=== PATIENT | female | born 1940 | race Caucasian/White ===

== ENCOUNTER 2017-11-16 09:33 | Inpatient (IN) | payer MEDICARE, OTHER ==
[2017-11-16] MEDS: ONDANSETRON 4MG/2ML VIAL (J2405) IV ×3 (11:17→23:42)
[2017-11-16] MEDS: MORPHINE 2 MG/ML 1ML SYRINGE (J2270) IV ×2 (11:17→14:21)
[2017-11-16 12:27] LABS: HEMATOCRIT 40.3 % (36.0-47.0); HEMOGLOBIN 13.6 g/dl (12.0-15.5); MEAN CORPUSCULAR HEMOGLOBIN 32.5 pg (27.0-33.0); MEAN CORPUSCULAR HGB CONC 33.7 g/dl (32.0-36.5); MEAN CORPUSCULAR VOLUME 96.2 fl (80.0-96.0); PLATELET COUNT, AUTOMATED 192 10^3/uL (150-450); RED BLOOD COUNT 4.19 10^6/uL (4.00-5.40); RED CELL DISTRIBUTION WIDTH 14.1 % (11.5-14.5); WHITE BLOOD COUNT 18.4 10^3/uL (4.0-10.0)
[2017-11-16 12:34] LABS: INR 0.93; PARTIAL THROMBOPLASTIN TIME 27.2 SECONDS (25.4-37.6); PROTHROMBIN TIME 12.6 SECONDS (12.1-14.4)
[2017-11-16] MEDS: NS 1,000 ML IV ×2 (12:52→16:06)
[2017-11-16 13:19] LABS: ANION GAP 5 MEQ/L (8-16); BLOOD UREA NITROGEN 12 MG/DL (7-18); CALCIUM LEVEL 8.4 MG/DL (8.8-10.2); CARBON DIOXIDE LEVEL 29 MEQ/L (21-32); CHLORIDE LEVEL 108 MEQ/L (98-107); CREATININE FOR GFR 0.71 MG/DL (0.55-1.30); GLOMERULAR FILTRATION RATE > 60.0 (>39); GLUCOSE, FASTING 110 MG/DL (70-100); POTASSIUM SERUM 3.9 MEQ/L (3.5-5.1); SODIUM LEVEL 142 MEQ/L (136-145)
[2017-11-16 13:20] LABS: CK-MB VALUE MASS 3.7 NG/ML (<3.6); CPK CREATINE PHOSPHOKINASE 225 U/L (26-192)
[2017-11-16 13:21] LABS: MB/CK RELATIVE INDEX 0.02 (< OR =4); TROPONIN I 0.15 NG/ML (< 0.10)
[2017-11-16 14:34] LABS: CPK CREATINE PHOSPHOKINASE 214 U/L (26-192); MB/CK RELATIVE INDEX 1.36 (< OR =4); TROPONIN I < 0.02 NG/ML (< 0.10)
[2017-11-16] MEDS ORDERED: ALBUTEROL SULFATE 2.5 MG/0.5 ML INH NEB SOLN INH (15:30)
[2017-11-16] MEDS: PANTOPRAZOLE 40MG TAB (PROTONIX) PO (15:37)
[2017-11-16] MEDS ORDERED: IPRATROPIUM 0.5MG/ALBUTEROL 2.5MG INH SOL UD 3ML (DUONEB)(J7620) NEB (19:00)
[2017-11-16] MEDS: IPRATROPIUM 0.5MG/ALBUTEROL 2.5MG INH SOL UD 3ML (DUONEB)(J7620) NEB (19:53)
[2017-11-16] MEDS: HEPARIN SOD (PORCINE) 5000 UNITS/ML VIAL SQ (20:57)
[2017-11-16] MEDS: ADVAIR HFA 115/21MCG INHALER INH (21:00)
[2017-11-16 21:26] LABS: KETONE, URINE AUTO RFX TRACE mg/dL (NEGATIVE); LEUKOCYTE ESTERASE UR AUTO RFX TRACE (NEGATIVE); MUCUS, URINE RFX LARGE (NEGATIVE); NITRITE, URINE AUTO RFX NEGATIVE (NEGATIVE); RBC, URINE AUTO RFX 17 /HPF (0-3); SQUAM EPITHELIAL CELL UR AURFX 3 /HPF (0-6); WBC, URINE AUTO RFX 10 /HPF (0-3)
[2017-11-16 22:39] LABS: CPK CREATINE PHOSPHOKINASE 212 U/L (26-192); MB/CK RELATIVE INDEX 0.99 (< OR =4); TROPONIN I < 0.02 NG/ML (< 0.10)
[2017-11-16] MEDS: MORPHINE 4 MG/ML 1ML VIAL/SYRINGE (J2270) IV (23:38)
[2017-11-17] MEDS: IPRATROPIUM 0.5MG/ALBUTEROL 2.5MG INH SOL UD 3ML (DUONEB)(J7620) NEB ×4 (01:17→19:49)
[2017-11-17] MEDS: NS 1,000 ML IV ×2 (04:32→17:21)
[2017-11-17] MEDS: METOCLOPRAMIDE INJ 10MG/2ML VIAL (J2765) IV (04:32)
[2017-11-17 08:05] LABS: HEMATOCRIT 35.9 % (36.0-47.0); HEMOGLOBIN 11.8 g/dl (12.0-15.5); MEAN CORPUSCULAR HEMOGLOBIN 32.4 pg (27.0-33.0); MEAN CORPUSCULAR HGB CONC 32.9 g/dl (32.0-36.5); MEAN CORPUSCULAR VOLUME 98.6 fl (80.0-96.0); PLATELET COUNT, AUTOMATED 158 10^3/uL (150-450); RED BLOOD COUNT 3.64 10^6/uL (4.00-5.40); RED CELL DISTRIBUTION WIDTH 14.1 % (11.5-14.5); WHITE BLOOD COUNT 14.2 10^3/uL (4.0-10.0)
[2017-11-17 08:40] LABS: ALBUMIN 2.9 GM/DL (3.2-5.2); ALBUMIN/GLOBULIN RATIO 0.81 (1.00-1.93); ALKALINE PHOSPHATASE 66 U/L (45-117); ALT/SGPT 32 U/L (12-78); ANION GAP 3 MEQ/L (8-16); AST/SGOT 26 U/L (7-37); BILIRUBIN,TOTAL 0.7 MG/DL (0.2-1.0); BLOOD UREA NITROGEN 13 MG/DL (7-18); CALCIUM LEVEL 8.1 MG/DL (8.8-10.2); CARBON DIOXIDE LEVEL 28 MEQ/L (21-32); CHLORIDE LEVEL 110 MEQ/L (98-107); CREATININE FOR GFR 0.72 MG/DL (0.55-1.30); GLOMERULAR FILTRATION RATE > 60.0 (>39); GLUCOSE, FASTING 109 MG/DL (70-100); MAGNESIUM LEVEL 2.6 MG/DL (1.8-2.4); POTASSIUM SERUM 4.2 MEQ/L (3.5-5.1); SODIUM LEVEL 141 MEQ/L (136-145); TOTAL PROTEIN 6.5 GM/DL (6.4-8.2)
[2017-11-17] MEDS: ADVAIR HFA 115/21MCG INHALER INH ×2 (08:55→19:49)
[2017-11-17] MEDS: ASPIRIN 81 MG ENTERIC TAB PO (09:00)
[2017-11-17] MEDS: PANTOPRAZOLE 40MG TAB (PROTONIX) PO (09:37)
[2017-11-17] MEDS: ONDANSETRON 4MG/2ML VIAL (J2405) IV (10:45)
[2017-11-17] MEDS: MORPHINE 4 MG/ML 1ML VIAL/SYRINGE (J2270) IV (10:46)
[2017-11-17] MEDS ORDERED: ceFAZolin 1GM INJ (J0690 PER 500MG) As Ordered (14:09)
[2017-11-17] MEDS: HEPARIN SOD (PORCINE) 5000 UNITS/ML VIAL SQ (17:21)
[2017-11-18] MEDS: IPRATROPIUM 0.5MG/ALBUTEROL 2.5MG INH SOL UD 3ML (DUONEB)(J7620) NEB ×4 (01:53→20:00)
[2017-11-18] MEDS: MORPHINE 4 MG/ML 1ML VIAL/SYRINGE (J2270) IV (05:14)
[2017-11-18] MEDS: ONDANSETRON 4MG/2ML VIAL (J2405) IV (05:15)
[2017-11-18 07:12] LABS: HEMATOCRIT 33.9 % (36.0-47.0); HEMOGLOBIN 11.1 g/dl (12.0-15.5); MEAN CORPUSCULAR HEMOGLOBIN 31.7 pg (27.0-33.0); MEAN CORPUSCULAR HGB CONC 32.7 g/dl (32.0-36.5); MEAN CORPUSCULAR VOLUME 96.9 fl (80.0-96.0); PLATELET COUNT, AUTOMATED 154 10^3/uL (150-450); WHITE BLOOD COUNT 11.8 10^3/uL (4.0-10.0)
[2017-11-18] MEDS: NS 1,000 ML IV (07:30)
[2017-11-18 07:35] LABS: ALBUMIN 2.5 GM/DL (3.2-5.2); ALBUMIN/GLOBULIN RATIO 0.76 (1.00-1.93); ALKALINE PHOSPHATASE 63 U/L (45-117); ALT/SGPT 27 U/L (12-78); ANION GAP 5 MEQ/L (8-16); AST/SGOT 19 U/L (7-37); BILIRUBIN,TOTAL 0.8 MG/DL (0.2-1.0); BLOOD UREA NITROGEN 11 MG/DL (7-18); CALCIUM LEVEL 7.6 MG/DL (8.8-10.2); CARBON DIOXIDE LEVEL 29 MEQ/L (21-32); CHLORIDE LEVEL 108 MEQ/L (98-107); CREATININE FOR GFR 0.54 MG/DL (0.55-1.30); GLOMERULAR FILTRATION RATE > 60.0 (>39); GLUCOSE, FASTING 116 MG/DL (70-100); MAGNESIUM LEVEL 2.3 MG/DL (1.8-2.4); SODIUM LEVEL 142 MEQ/L (136-145); TOTAL PROTEIN 5.8 GM/DL (6.4-8.2)
[2017-11-18] MEDS: ADVAIR HFA 115/21MCG INHALER INH ×2 (08:03→21:09)
[2017-11-18] MEDS ORDERED: ONDANSETRON 4MG/2ML VIAL (J2405) As Ordered (08:55)
[2017-11-18] MEDS ORDERED: PROPOFOL 200 MG/20 ML VIAL As Ordered (08:55)
[2017-11-18] MEDS ORDERED: MIDAZOLAM INJ 2 MG/2 ML VIAL (J2250) As Ordered (08:55)
[2017-11-18] MEDS ORDERED: BUPIVACAINE/DEXTROSE 0.75% 2 ML AMP As Ordered (08:55)
[2017-11-18] MEDS ORDERED: dexameTHASONE 4 MG/ML 1ML VIAL (J1100) As Ordered (08:55)
[2017-11-18] MEDS ORDERED: KETAMINE HCL 200 MG/20 ML VIAL As Ordered (08:55)
[2017-11-18] MEDS: ceFAZolin 1GM INJ (J0690 PER 500MG) As Ordered (09:08)
[2017-11-18] MEDS: EPINEPHrine INJ 1 MG/ML 1ML AMP As Ordered (09:08)
[2017-11-18] MEDS ORDERED: ePHEDrine SULFATE 25 MG/5 ML(5MG/ML) SYRINGE As Ordered (09:15)
[2017-11-18] MEDS ORDERED: PHENYLephrine HCL 500 MCG/5 ML (100MCG/ML) SYRINGE (J2370) As Ordered ×2 (09:15→09:34)
[2017-11-18] MEDS ORDERED: fentaNYL 100 MCG/2 ML INJECTION (J3010) IV (11:45)
[2017-11-18] MEDS ORDERED: ONDANSETRON 4MG/2ML VIAL (J2405) IV (11:45)
[2017-11-18] MEDS: LR 1,000 ML IV (11:45)
[2017-11-18] MEDS ORDERED: MORPHINE 10 MG/ML 1ML VIAL (J2270) IV (11:45)
[2017-11-18] MEDS ORDERED: traMADol 50 MG TAB PO ×2 (12:00)
[2017-11-18] MEDS: PANTOPRAZOLE 40MG TAB (PROTONIX) PO (15:10)
[2017-11-18] MEDS: ASPIRIN 81 MG ENTERIC TAB PO (15:10)
[2017-11-18] MEDS: INFLUENZA VIRUS VACCINE HIGH DOSE 0.5 ML SYRINGE (90662) IM (17:24)
[2017-11-18] MEDS: ACETAMINOPHEN TAB 650MG DOSE (2X325MG) PO (21:30)
[2017-11-19] MEDS: IPRATROPIUM 0.5MG/ALBUTEROL 2.5MG INH SOL UD 3ML (DUONEB)(J7620) NEB ×4 (02:00→20:14)
[2017-11-19] MEDS: ACETAMINOPHEN TAB 650MG DOSE (2X325MG) PO ×2 (05:56→17:33)
[2017-11-19 06:53] LABS: HEMATOCRIT 29.8 % (36.0-47.0); HEMOGLOBIN 9.9 g/dl (12.0-15.5); MEAN CORPUSCULAR HEMOGLOBIN 32.5 pg (27.0-33.0); MEAN CORPUSCULAR HGB CONC 33.2 g/dl (32.0-36.5); MEAN CORPUSCULAR VOLUME 97.7 fl (80.0-96.0); PLATELET COUNT, AUTOMATED 150 10^3/uL (150-450); RED BLOOD COUNT 3.05 10^6/uL (4.00-5.40); RED CELL DISTRIBUTION WIDTH 13.8 % (11.5-14.5); WHITE BLOOD COUNT 13.9 10^3/uL (4.0-10.0)
[2017-11-19 07:04] LABS: ALBUMIN 2.3 GM/DL (3.2-5.2); ALBUMIN/GLOBULIN RATIO 0.66 (1.00-1.93); ALKALINE PHOSPHATASE 54 U/L (45-117); ALT/SGPT 24 U/L (12-78); ANION GAP 6 MEQ/L (8-16); AST/SGOT 23 U/L (7-37); BILIRUBIN,TOTAL 0.8 MG/DL (0.2-1.0); BLOOD UREA NITROGEN 12 MG/DL (7-18); CALCIUM LEVEL 7.9 MG/DL (8.8-10.2); CARBON DIOXIDE LEVEL 28 MEQ/L (21-32); CHLORIDE LEVEL 106 MEQ/L (98-107); CREATININE FOR GFR 0.44 MG/DL (0.55-1.30); GLOMERULAR FILTRATION RATE > 60.0 (>39); GLUCOSE, FASTING 112 MG/DL (70-100); MAGNESIUM LEVEL 2.3 MG/DL (1.8-2.4); POTASSIUM SERUM 3.8 MEQ/L (3.5-5.1); SODIUM LEVEL 140 MEQ/L (136-145); TOTAL PROTEIN 5.8 GM/DL (6.4-8.2)
[2017-11-19] MEDS: ADVAIR HFA 115/21MCG INHALER INH ×2 (07:46→20:15)
[2017-11-19] MEDS: MOM 30ML SUSPENSION UDC PO (09:00)
[2017-11-19] MEDS: MIRALAX *UNIT DOSE* 17GM PACKET PO (09:00)
[2017-11-19] MEDS: PANTOPRAZOLE 40MG TAB (PROTONIX) PO (10:05)
[2017-11-19] MEDS: ASPIRIN 81 MG ENTERIC TAB PO (10:05)
[2017-11-19] MEDS: SENOKOT S TAB PO ×2 (10:05→20:45)
[2017-11-19] MEDS: ceFAZolin SOD 1 GM in D5W MINI-BAG PLUS 50 ML IV ×2 (10:05→17:34)
[2017-11-19] MEDS ORDERED: ALBUTEROL SULFATE 2.5 MG/0.5 ML INH NEB SOLN NEB (16:00)
[2017-11-19] MEDS: RIVAROXABAN 10 MG TAB (XARELTO) PO (17:32)
[2017-11-19] MEDS: cefTRIAXone SOD 1 GM in D5W MINI-BAG PLUS 50 ML IV (20:45)
[2017-11-19] MEDS: DONEPEZIL 5 MG TAB PO (20:45)
[2017-11-19] MEDS: QUEtiapine FUMARATE 25 MG TAB PO (20:45)
[2017-11-20] MEDS: IPRATROPIUM 0.5MG/ALBUTEROL 2.5MG INH SOL UD 3ML (DUONEB)(J7620) NEB ×3 (01:38→13:56)
[2017-11-20] MEDS: ACETAMINOPHEN TAB 650MG DOSE (2X325MG) PO ×2 (04:38→13:01)
[2017-11-20] MEDS: ADVAIR HFA 115/21MCG INHALER INH (07:26)
[2017-11-20] MEDS: SENOKOT S TAB PO (07:54)
[2017-11-20] MEDS: cefTRIAXone SOD 1 GM in D5W MINI-BAG PLUS 50 ML IV (07:54)
[2017-11-20] MEDS: MIRALAX *UNIT DOSE* 17GM PACKET PO (07:54)
[2017-11-20] MEDS: PANTOPRAZOLE 40MG TAB (PROTONIX) PO (07:55)
[2017-11-20] MEDS: MOM 30ML SUSPENSION UDC PO (07:55)
[2017-11-20] MEDS: ASPIRIN 81 MG ENTERIC TAB PO (07:56)
[2017-11-20 08:17] LABS: HEMATOCRIT 28.7 % (36.0-47.0); HEMOGLOBIN 9.8 g/dl (12.0-15.5); MEAN CORPUSCULAR HEMOGLOBIN 33.3 pg (27.0-33.0); MEAN CORPUSCULAR HGB CONC 34.1 g/dl (32.0-36.5); MEAN CORPUSCULAR VOLUME 97.6 fl (80.0-96.0); PLATELET COUNT, AUTOMATED 174 10^3/uL (150-450); RED BLOOD COUNT 2.94 10^6/uL (4.00-5.40); RED CELL DISTRIBUTION WIDTH 14.1 % (11.5-14.5); WHITE BLOOD COUNT 11.1 10^3/uL (4.0-10.0)
[2017-11-20 08:47] LABS: ALBUMIN 2.3 GM/DL (3.2-5.2); ALBUMIN/GLOBULIN RATIO 0.62 (1.00-1.93); ALKALINE PHOSPHATASE 55 U/L (45-117); ALT/SGPT 23 U/L (12-78); ANION GAP 8 MEQ/L (8-16); AST/SGOT 18 U/L (7-37); BILIRUBIN,TOTAL 0.6 MG/DL (0.2-1.0); BLOOD UREA NITROGEN 11 MG/DL (7-18); CARBON DIOXIDE LEVEL 29 MEQ/L (21-32); CHLORIDE LEVEL 108 MEQ/L (98-107); CREATININE FOR GFR 0.58 MG/DL (0.55-1.30); GLOMERULAR FILTRATION RATE > 60.0 (>39); GLUCOSE, FASTING 100 MG/DL (70-100); MAGNESIUM LEVEL 2.6 MG/DL (1.8-2.4); POTASSIUM SERUM 3.6 MEQ/L (3.5-5.1); SODIUM LEVEL 145 MEQ/L (136-145)
== END 2017-11-20 17:15 | DRG 470 ==
LOC: M MS5PR 11-18 12:30 → M ED 09:33 → M ED INP 18:55
PROC: 0SRR019 Replacement of Right Hip Joint, Femoral Surface with Metal Synthetic Substitute, Cemented, Open Approach (ICD-10-PCS; principal; 2017-11-18 08:18)
DX: S72.001A Fracture of unspecified part of neck of right femur, initial encounter for closed fracture (principal); N39.0 Urinary tract infection, site not specified; J44.9 Chronic obstructive pulmonary disease, unspecified; F03.90 Unspecified dementia, unspecified severity, without behavioral disturbance, psychotic disturbance, mood disturbance, and anxiety; B95.1 Streptococcus, group B, as the cause of diseases classified elsewhere; F41.9 Anxiety disorder, unspecified; K21.9 Gastro-esophageal reflux disease without esophagitis; R79.89 Other specified abnormal findings of blood chemistry; W01.0XXA Fall on same level from slipping, tripping and stumbling without subsequent striking against object, initial encounter; Y92.009 Unspecified place in unspecified non-institutional (private) residence as the place of occurrence of the external cause; Y93.01 Activity, walking, marching and hiking; Z90.49 Acquired absence of other specified parts of digestive tract; Z87.891 Personal history of nicotine dependence; Z79.899 Other long term (current) drug therapy

== ENCOUNTER 2017-11-20 17:17 | Inpatient (IN) | payer MEDICARE ==
[2017-11-20] MEDS: ALBUTEROL SULFATE 2.5 MG/0.5 ML INH NEB SOLN NEB (20:40)
[2017-11-20] MEDS: ADVAIR HFA 115/21MCG INHALER INH (21:00)
[2017-11-20] MEDS: DONEPEZIL 5 MG TAB PO (21:46)
[2017-11-20] MEDS: QUEtiapine FUMARATE 25 MG TAB PO (21:46)
[2017-11-20] MEDS: CEFDINIR 300 MG CAP (OMNICEF) PO (21:46)
[2017-11-20] MEDS: RIVAROXABAN 10 MG TAB (XARELTO) PO (21:46)
[2017-11-20] MEDS: traMADol 50 MG TAB PO (21:47)
[2017-11-21] MEDS: ALBUTEROL SULFATE 2.5 MG/0.5 ML INH NEB SOLN NEB ×4 (02:00→21:38)
[2017-11-21] MEDS: ADVAIR HFA 115/21MCG INHALER INH ×3 (02:55→21:38)
[2017-11-21] MEDS: traMADol 50 MG TAB PO ×2 (03:47→20:26)
[2017-11-21 07:05] LABS: BASO % 0.3 % (0.0-1.0); EOS # 0.6 10^3/uL (0.0-0.50); EOS % 5.9 % (0.0-3.0); HEMATOCRIT 25.7 % (36.0-47.0); HEMOGLOBIN 8.6 g/dl (12.0-15.5); IMMATURE GRANULOCYTE % 0.6 % (0-3.0); LYMPH # 1.7 10^3/uL (1.5-4.5); LYMPH % 16.6 % (24.0-44.0); MEAN CORPUSCULAR HGB CONC 33.5 g/dl (32.0-36.5); MEAN CORPUSCULAR VOLUME 95.5 fl (80.0-96.0); MONO # 1.8 10^3/uL (0.0-0.8); MONO % 17.5 % (0.0-5.0); NEUTROPHILS % 59.1 % (36.0-66.0); PLATELET COUNT, AUTOMATED 190 10^3/uL (150-450); RED BLOOD COUNT 2.69 10^6/uL (4.00-5.40); RED CELL DISTRIBUTION WIDTH 13.7 % (11.5-14.5); WHITE BLOOD COUNT 10.1 10^3/uL (4.0-10.0)
[2017-11-21 07:16] LABS: ALBUMIN/GLOBULIN RATIO 0.59 (1.00-1.93); ALKALINE PHOSPHATASE 51 U/L (45-117); ALT/SGPT 18 U/L (12-78); ANION GAP 7 MEQ/L (8-16); AST/SGOT 17 U/L (7-37); BILIRUBIN,TOTAL 0.4 MG/DL (0.2-1.0); BLOOD UREA NITROGEN 13 MG/DL (7-18); CALCIUM LEVEL 7.6 MG/DL (8.8-10.2); CARBON DIOXIDE LEVEL 28 MEQ/L (21-32); CHLORIDE LEVEL 106 MEQ/L (98-107); CREATININE FOR GFR 0.44 MG/DL (0.55-1.30); GLOMERULAR FILTRATION RATE > 60.0 (>39); GLUCOSE, FASTING 96 MG/DL (70-100); POTASSIUM SERUM 3.9 MEQ/L (3.5-5.1); SODIUM LEVEL 141 MEQ/L (136-145); TOTAL PROTEIN 5.4 GM/DL (6.4-8.2)
[2017-11-21] MEDS: PANTOPRAZOLE 40MG TAB (PROTONIX) PO (08:13)
[2017-11-21] MEDS: SENOKOT S TAB PO (08:13)
[2017-11-21] MEDS: CEFDINIR 300 MG CAP (OMNICEF) PO ×2 (08:13→20:26)
[2017-11-21] MEDS: ASPIRIN 81 MG CHEW TABLET PO (08:13)
[2017-11-21] MEDS: ACETAMINOPHEN TAB 650MG DOSE (2X325MG) PO (17:47)
[2017-11-21] MEDS: RIVAROXABAN 10 MG TAB (XARELTO) PO (17:47)
[2017-11-21] MEDS: DONEPEZIL 5 MG TAB PO (20:26)
[2017-11-21] MEDS: QUEtiapine FUMARATE 25 MG TAB PO (20:26)
[2017-11-21] MEDS: FERROUS SULFATE 325MG TAB PO (20:26)
[2017-11-22] MEDS: ALBUTEROL SULFATE 2.5 MG/0.5 ML INH NEB SOLN NEB ×4 (00:50→20:44)
[2017-11-22] MEDS: traMADol 50 MG TAB PO ×2 (06:08→21:07)
[2017-11-22 07:51] LABS: HEMATOCRIT 28.3 % (36.0-47.0); HEMOGLOBIN 9.3 g/dl (12.0-15.5); MEAN CORPUSCULAR HEMOGLOBIN 32.1 pg (27.0-33.0); MEAN CORPUSCULAR HGB CONC 32.9 g/dl (32.0-36.5); MEAN CORPUSCULAR VOLUME 97.6 fl (80.0-96.0); PLATELET COUNT, AUTOMATED 236 10^3/uL (150-450); RED CELL DISTRIBUTION WIDTH 13.7 % (11.5-14.5); WHITE BLOOD COUNT 9.2 10^3/uL (4.0-10.0)
[2017-11-22] MEDS: FERROUS SULFATE 325MG TAB PO ×2 (07:59→21:02)
[2017-11-22] MEDS: SENOKOT S TAB PO (07:59)
[2017-11-22] MEDS: ASPIRIN 81 MG CHEW TABLET PO (07:59)
[2017-11-22] MEDS: CEFDINIR 300 MG CAP (OMNICEF) PO ×2 (07:59→21:01)
[2017-11-22] MEDS: PANTOPRAZOLE 40MG TAB (PROTONIX) PO (08:00)
[2017-11-22] MEDS: ADVAIR HFA 115/21MCG INHALER INH ×2 (08:17→20:45)
[2017-11-22] MEDS ORDERED: DONEPEZIL 5 MG TAB PO (09:00)
[2017-11-22] MEDS ORDERED: BISACODYL 10 MG SUPP PR (11:45)
[2017-11-22] MEDS: RIVAROXABAN 10 MG TAB (XARELTO) PO (17:27)
[2017-11-22] MEDS: QUEtiapine FUMARATE 25 MG TAB PO (21:02)
[2017-11-22] MEDS: DONEPEZIL 5 MG TAB PO (21:02)
[2017-11-23] MEDS: ALBUTEROL SULFATE 2.5 MG/0.5 ML INH NEB SOLN NEB ×4 (02:47→19:49)
[2017-11-23] MEDS: traMADol 50 MG TAB PO ×2 (06:04→16:02)
[2017-11-23] MEDS: ADVAIR HFA 115/21MCG INHALER INH ×2 (08:20→19:49)
[2017-11-23] MEDS: SENOKOT S TAB PO (08:32)
[2017-11-23] MEDS: CEFDINIR 300 MG CAP (OMNICEF) PO ×2 (08:32→20:45)
[2017-11-23] MEDS: ASPIRIN 81 MG CHEW TABLET PO (08:32)
[2017-11-23] MEDS: FERROUS SULFATE 325MG TAB PO ×2 (08:32→20:45)
[2017-11-23] MEDS: PANTOPRAZOLE 40MG TAB (PROTONIX) PO (08:32)
[2017-11-23] MEDS: RIVAROXABAN 10 MG TAB (XARELTO) PO (17:03)
[2017-11-23] MEDS: DONEPEZIL 5 MG TAB PO (20:45)
[2017-11-23] MEDS: QUEtiapine FUMARATE 25 MG TAB PO (20:45)
[2017-11-24] MEDS: ALBUTEROL SULFATE 2.5 MG/0.5 ML INH NEB SOLN NEB ×4 (01:20→20:00)
[2017-11-24] MEDS: traMADol 50 MG TAB PO ×2 (02:30→21:14)
[2017-11-24] MEDS: ADVAIR HFA 115/21MCG INHALER INH ×2 (09:03→20:34)
[2017-11-24] MEDS: ASPIRIN 81 MG CHEW TABLET PO (09:49)
[2017-11-24] MEDS: ACETAMINOPHEN TAB 650MG DOSE (2X325MG) PO (09:49)
[2017-11-24] MEDS: SENOKOT S TAB PO (09:49)
[2017-11-24] MEDS: CEFDINIR 300 MG CAP (OMNICEF) PO ×2 (09:49→21:11)
[2017-11-24] MEDS: FERROUS SULFATE 325MG TAB PO ×2 (09:50→21:11)
[2017-11-24] MEDS: PANTOPRAZOLE 40MG TAB (PROTONIX) PO (09:51)
[2017-11-24] MEDS: RIVAROXABAN 10 MG TAB (XARELTO) PO (17:54)
[2017-11-24] MEDS: QUEtiapine FUMARATE 25 MG TAB PO (21:11)
[2017-11-24] MEDS: DONEPEZIL 5 MG TAB PO (21:11)
[2017-11-25] MEDS: ALBUTEROL SULFATE 2.5 MG/0.5 ML INH NEB SOLN NEB ×4 (02:00→20:00)
[2017-11-25] MEDS: ADVAIR HFA 115/21MCG INHALER INH ×2 (08:17→20:30)
[2017-11-25] MEDS: ASPIRIN 81 MG CHEW TABLET PO (08:56)
[2017-11-25] MEDS: CEFDINIR 300 MG CAP (OMNICEF) PO (08:56)
[2017-11-25] MEDS: PANTOPRAZOLE 40MG TAB (PROTONIX) PO (08:56)
[2017-11-25] MEDS: FERROUS SULFATE 325MG TAB PO ×2 (08:56→20:25)
[2017-11-25] MEDS: SENOKOT S TAB PO (08:56)
[2017-11-25] MEDS: RIVAROXABAN 10 MG TAB (XARELTO) PO (17:03)
[2017-11-25] MEDS: ACETAMINOPHEN TAB 650MG DOSE (2X325MG) PO (18:23)
[2017-11-25] MEDS: DONEPEZIL 5 MG TAB PO (20:25)
[2017-11-25] MEDS: QUEtiapine FUMARATE 25 MG TAB PO (20:25)
[2017-11-25] MEDS: traMADol 50 MG TAB PO (20:25)
[2017-11-26] MEDS: ALBUTEROL SULFATE 2.5 MG/0.5 ML INH NEB SOLN NEB ×4 (02:00→19:22)
[2017-11-26] MEDS: ASPIRIN 81 MG CHEW TABLET PO (08:11)
[2017-11-26] MEDS: SENOKOT S TAB PO (08:11)
[2017-11-26] MEDS: traMADol 50 MG TAB PO ×2 (08:12→20:31)
[2017-11-26] MEDS: PANTOPRAZOLE 40MG TAB (PROTONIX) PO (08:12)
[2017-11-26] MEDS: FERROUS SULFATE 325MG TAB PO ×2 (08:12→20:31)
[2017-11-26] MEDS: ADVAIR HFA 115/21MCG INHALER INH ×2 (08:21→19:23)
[2017-11-26] MEDS: RIVAROXABAN 10 MG TAB (XARELTO) PO (17:19)
[2017-11-26] MEDS: QUEtiapine FUMARATE 25 MG TAB PO (20:31)
[2017-11-26] MEDS: DONEPEZIL 5 MG TAB PO (20:31)
[2017-11-27] MEDS: ALBUTEROL SULFATE 2.5 MG/0.5 ML INH NEB SOLN NEB ×3 (02:32→13:53)
[2017-11-27] MEDS: PANTOPRAZOLE 40MG TAB (PROTONIX) PO (08:29)
[2017-11-27] MEDS: traMADol 50 MG TAB PO ×2 (08:29→20:44)
[2017-11-27] MEDS: FERROUS SULFATE 325MG TAB PO ×2 (08:29→20:44)
[2017-11-27] MEDS: SENOKOT S TAB PO (08:30)
[2017-11-27] MEDS: ASPIRIN 81 MG CHEW TABLET PO (08:30)
[2017-11-27] MEDS: ADVAIR HFA 115/21MCG INHALER INH ×2 (10:14→21:14)
[2017-11-27] MEDS ORDERED: ALBUTEROL SULFATE 2.5 MG/0.5 ML INH NEB SOLN NEB (15:30)
[2017-11-27] MEDS: RIVAROXABAN 10 MG TAB (XARELTO) PO (18:14)
[2017-11-27] MEDS: QUEtiapine FUMARATE 25 MG TAB PO (20:43)
[2017-11-27] MEDS: DONEPEZIL 5 MG TAB PO (20:43)
[2017-11-28] MEDS: ACETAMINOPHEN TAB 650MG DOSE (2X325MG) PO ×2 (04:00→20:03)
[2017-11-28] MEDS: ADVAIR HFA 115/21MCG INHALER INH ×2 (07:30→19:56)
[2017-11-28] MEDS: traMADol 50 MG TAB PO (08:54)
[2017-11-28] MEDS: ASPIRIN 81 MG CHEW TABLET PO (08:55)
[2017-11-28] MEDS: FERROUS SULFATE 325MG TAB PO ×2 (08:55→20:03)
[2017-11-28] MEDS: PANTOPRAZOLE 40MG TAB (PROTONIX) PO (08:55)
[2017-11-28] MEDS: SENOKOT S TAB PO (08:55)
[2017-11-28] MEDS: RIVAROXABAN 10 MG TAB (XARELTO) PO (17:30)
[2017-11-28] MEDS: QUEtiapine FUMARATE 25 MG TAB PO (20:02)
[2017-11-28] MEDS: DONEPEZIL 5 MG TAB PO (20:02)
[2017-11-29] MEDS: traMADol 50 MG TAB PO ×2 (00:17→21:50)
[2017-11-29 07:00] LABS: BASO % 0.4 % (0.0-1.0); EOS # 0.4 10^3/uL (0.0-0.50); HEMATOCRIT 29.9 % (36.0-47.0); HEMOGLOBIN 9.6 g/dl (12.0-15.5); IMMATURE GRANULOCYTE % 0.6 % (0-3.0); LYMPH # 1.6 10^3/uL (1.5-4.5); LYMPH % 16.1 % (24.0-44.0); MEAN CORPUSCULAR HEMOGLOBIN 32.1 pg (27.0-33.0); MEAN CORPUSCULAR HGB CONC 32.1 g/dl (32.0-36.5); MONO # 1.4 10^3/uL (0.0-0.8); MONO % 14.5 % (0.0-5.0); NEUTROPHILS # 6.2 10^3/uL (1.8-7.7); NEUTROPHILS % 64.4 % (36.0-66.0); PLATELET COUNT, AUTOMATED 412 10^3/uL (150-450); RED BLOOD COUNT 2.99 10^6/uL (4.00-5.40); RED CELL DISTRIBUTION WIDTH 15.4 % (11.5-14.5); WHITE BLOOD COUNT 9.6 10^3/uL (4.0-10.0)
[2017-11-29 07:13] LABS: ANION GAP 7 MEQ/L (8-16); BLOOD UREA NITROGEN 13 MG/DL (7-18); CALCIUM LEVEL 8.5 MG/DL (8.8-10.2); CARBON DIOXIDE LEVEL 27 MEQ/L (21-32); CHLORIDE LEVEL 109 MEQ/L (98-107); CREATININE FOR GFR 0.63 MG/DL (0.55-1.30); GLOMERULAR FILTRATION RATE > 60.0 (>39); GLUCOSE, FASTING 95 MG/DL (70-100); POTASSIUM SERUM 4.1 MEQ/L (3.5-5.1); SODIUM LEVEL 143 MEQ/L (136-145)
[2017-11-29] MEDS: ADVAIR HFA 115/21MCG INHALER INH ×2 (07:31→20:36)
[2017-11-29] MEDS: PANTOPRAZOLE 40MG TAB (PROTONIX) PO (08:05)
[2017-11-29] MEDS: ASPIRIN 81 MG CHEW TABLET PO (08:05)
[2017-11-29] MEDS: FERROUS SULFATE 325MG TAB PO ×2 (08:05→21:00)
[2017-11-29] MEDS: SENOKOT S TAB PO (08:05)
[2017-11-29] MEDS: RIVAROXABAN 10 MG TAB (XARELTO) PO (18:40)
[2017-11-29] MEDS: QUEtiapine FUMARATE 25 MG TAB PO (21:00)
[2017-11-29] MEDS: guaiFENesin ER 600 MG TAB PO (21:00)
[2017-11-29] MEDS: SODIUM CHLORIDE NASAL 0.65% SPRAY BTL (OCEAN) (21:00)
[2017-11-29] MEDS: DONEPEZIL 5 MG TAB PO (21:49)
[2017-11-30] MEDS: traMADol 50 MG TAB PO ×2 (04:41→20:05)
[2017-11-30] MEDS: ADVAIR HFA 115/21MCG INHALER INH ×2 (07:33→20:07)
[2017-11-30] MEDS: SENOKOT S TAB PO (09:10)
[2017-11-30] MEDS: guaiFENesin ER 600 MG TAB PO ×2 (09:11→20:04)
[2017-11-30] MEDS: ACETAMINOPHEN TAB 650MG DOSE (2X325MG) PO (09:11)
[2017-11-30] MEDS: ASPIRIN 81 MG CHEW TABLET PO (09:11)
[2017-11-30] MEDS: FERROUS SULFATE 325MG TAB PO ×2 (09:12→20:05)
[2017-11-30] MEDS: PANTOPRAZOLE 40MG TAB (PROTONIX) PO (09:12)
[2017-11-30] MEDS: SODIUM CHLORIDE NASAL 0.65% SPRAY BTL (OCEAN) ×2 (09:13→21:00)
[2017-11-30] MEDS: CYANOCOBALAMIN 500 MCG TAB PO (12:23)
[2017-11-30] MEDS: FOLIC ACID 1 MG TAB PO (12:23)
[2017-11-30] MEDS: RIVAROXABAN 10 MG TAB (XARELTO) PO (17:19)
[2017-11-30] MEDS: DONEPEZIL 5 MG TAB PO (20:04)
[2017-11-30] MEDS: QUEtiapine FUMARATE 25 MG TAB PO (20:05)
[2017-12-01] MEDS: ADVAIR HFA 115/21MCG INHALER INH ×2 (07:34→21:09)
[2017-12-01] MEDS: SENOKOT S TAB PO (09:00)
[2017-12-01] MEDS: PANTOPRAZOLE 40MG TAB (PROTONIX) PO (09:04)
[2017-12-01] MEDS: FERROUS SULFATE 325MG TAB PO ×2 (09:04→20:17)
[2017-12-01] MEDS: guaiFENesin ER 600 MG TAB PO ×2 (09:04→20:17)
[2017-12-01] MEDS: CYANOCOBALAMIN 500 MCG TAB PO (09:04)
[2017-12-01] MEDS: ASPIRIN 81 MG CHEW TABLET PO (09:04)
[2017-12-01] MEDS: FOLIC ACID 1 MG TAB PO (09:04)
[2017-12-01] MEDS: SODIUM CHLORIDE NASAL 0.65% SPRAY BTL (OCEAN) ×2 (09:05→20:18)
[2017-12-01] MEDS: RIVAROXABAN 10 MG TAB (XARELTO) PO (16:57)
[2017-12-01] MEDS: DONEPEZIL 5 MG TAB PO (20:17)
[2017-12-01] MEDS: ACETAMINOPHEN TAB 650MG DOSE (2X325MG) PO (20:17)
[2017-12-01] MEDS: QUEtiapine FUMARATE 25 MG TAB PO (20:17)
[2017-12-02] MEDS: ADVAIR HFA 115/21MCG INHALER INH ×2 (07:53→22:12)
[2017-12-02] MEDS: SENOKOT S TAB PO (08:07)
[2017-12-02] MEDS: ASPIRIN 81 MG CHEW TABLET PO (08:07)
[2017-12-02] MEDS: FERROUS SULFATE 325MG TAB PO ×2 (08:08→20:33)
[2017-12-02] MEDS: PANTOPRAZOLE 40MG TAB (PROTONIX) PO (08:08)
[2017-12-02] MEDS: guaiFENesin ER 600 MG TAB PO ×2 (08:08→20:33)
[2017-12-02] MEDS: CYANOCOBALAMIN 500 MCG TAB PO (08:08)
[2017-12-02] MEDS: FOLIC ACID 1 MG TAB PO (08:08)
[2017-12-02] MEDS: SODIUM CHLORIDE NASAL 0.65% SPRAY BTL (OCEAN) ×2 (08:10→20:34)
[2017-12-02] MEDS: RIVAROXABAN 10 MG TAB (XARELTO) PO (17:08)
[2017-12-02] MEDS: ACETAMINOPHEN TAB 650MG DOSE (2X325MG) PO (17:08)
[2017-12-02] MEDS: QUEtiapine FUMARATE 25 MG TAB PO (20:33)
[2017-12-02] MEDS: DONEPEZIL 5 MG TAB PO (20:33)
[2017-12-03] MEDS: SENOKOT S TAB PO (09:00)
[2017-12-03] MEDS: FOLIC ACID 1 MG TAB PO (09:25)
[2017-12-03] MEDS: FERROUS SULFATE 325MG TAB PO ×2 (09:25→20:23)
[2017-12-03] MEDS: PANTOPRAZOLE 40MG TAB (PROTONIX) PO (09:25)
[2017-12-03] MEDS: CYANOCOBALAMIN 500 MCG TAB PO (09:25)
[2017-12-03] MEDS: guaiFENesin ER 600 MG TAB PO ×2 (09:25→20:23)
[2017-12-03] MEDS: ASPIRIN 81 MG CHEW TABLET PO (09:26)
[2017-12-03] MEDS: SODIUM CHLORIDE NASAL 0.65% SPRAY BTL (OCEAN) ×2 (09:26→20:24)
[2017-12-03] MEDS: ADVAIR HFA 115/21MCG INHALER INH ×2 (14:18→19:15)
[2017-12-03] MEDS: RIVAROXABAN 10 MG TAB (XARELTO) PO (17:23)
[2017-12-03] MEDS: QUEtiapine FUMARATE 25 MG TAB PO (20:23)
[2017-12-03] MEDS: DONEPEZIL 5 MG TAB PO (20:23)
[2017-12-03] MEDS: ACETAMINOPHEN TAB 650MG DOSE (2X325MG) PO (20:23)
[2017-12-04] MEDS: ADVAIR HFA 115/21MCG INHALER INH (07:37)
[2017-12-04] MEDS: FERROUS SULFATE 325MG TAB PO (08:50)
[2017-12-04] MEDS: guaiFENesin ER 600 MG TAB PO (08:50)
[2017-12-04] MEDS: SODIUM CHLORIDE NASAL 0.65% SPRAY BTL (OCEAN) (08:50)
[2017-12-04] MEDS: SENOKOT S TAB PO (08:50)
[2017-12-04] MEDS: CYANOCOBALAMIN 500 MCG TAB PO (08:50)
[2017-12-04] MEDS: PANTOPRAZOLE 40MG TAB (PROTONIX) PO (08:50)
[2017-12-04] MEDS: FOLIC ACID 1 MG TAB PO (08:50)
[2017-12-04] MEDS: ASPIRIN 81 MG CHEW TABLET PO (08:50)
== END 2017-12-04 13:15 | disposition home health service (06) | DRG 560 ==
LOC: M PM&R 17:17
DX: S72.001D Fracture of unspecified part of neck of right femur, subsequent encounter for closed fracture with routine healing (principal); I50.30 Unspecified diastolic (congestive) heart failure; J44.9 Chronic obstructive pulmonary disease, unspecified; K21.9 Gastro-esophageal reflux disease without esophagitis; W01.0XXD Fall on same level from slipping, tripping and stumbling without subsequent striking against object, subsequent encounter; Y92.019 Unspecified place in single-family (private) house as the place of occurrence of the external cause; Y93.01 Activity, walking, marching and hiking; Z90.49 Acquired absence of other specified parts of digestive tract; F03.90 Unspecified dementia, unspecified severity, without behavioral disturbance, psychotic disturbance, mood disturbance, and anxiety; D64.9 Anemia, unspecified; Z79.01 Long term (current) use of anticoagulants; Z79.899 Other long term (current) drug therapy; Z79.51 Long term (current) use of inhaled steroids

== ENCOUNTER 2018-12-09 14:06 | Inpatient (IN) | payer MEDICARE ==
[~2018-12-09] VITALS: Ht 157.5 cm; Wt 65.0 kg
[~2018-12-09 14:06] MED LIST: ADVA115A INH; ALBU83IN INH; ARIC1TAB2 PO; ASPI-286 PO; CEFD300CAP PO; Docusate Sod/Senna PO; FERR1TAB8 PO; FOLI1TAB11 PO; PROT1TAB2 PO; PROTPAK PO; SERO1TAB3 PO; TRAM50TA2 PO; VITA500T17 PO; XARE10TA PO
--- NOTE | 2018-12-09 14:54 | HPEPDOC ---
[facility] Medical History & Physical Date of Admission Dec 09, 2018 Date of Service: Dec 09, 2018 History and Physical CHIEF COMPLAINT: Hip fracture HISTORY OF PRESENT ILLNESS: 78 yo female transferred from [facility] for hip fracture. Patient family stated she fell out of bed, sustaining injury to left hip with pain. Discussed with daughter Corrie Ku [phone], states mother has never complained of chest pain, and able to walk 15-20 minutes, including three stairs to enter their home, without chest pain. States she follows with Stacy Rainey, and Dr. Zendejas, and does not have any other providers. States she was a heavy smoker, but quit over 30 years ago. Also states she was a heavy drinker, but quit over 10 years ago. Patient recalls falling, and states she was getting her laundry and slipped, how ever she is a poor historian. She denies any medical complaints. Denies chest pain, shortness of breath, headaches, changes in vision, abdominal pain. Discussed with her PCP Stacy Rainey, confirmed medical history. PAST MEDICAL HISTORY: 1. COPD 2. GERD 3. dementia PAST SURGICAL HISTORY: 1. right ORIF - 11/16/17 2. choly SOCIAL HISTORY: Tobacco use: quite >30 years; prior heavy smoker ETOH: quite >10 years ago; prior heavy drinker ALLERGIES: Please see below. REVIEW OF SYSTEMS: As per HPI. HOME MEDICATIONS: Please see below. PHYSICAL EXAMINATION: VITAL SIGNS: See below General: NAD, lying comfortably in bed, elderly, pleasantly confused HEENT: NC/AT, EOMI, PERRL Lungs: CTA B/L Heart: +S1S2, RRR, no murmurs rub or gallops Abd: soft, NT, +BS Ext: no edema Psych: oriented to person and place only LABORATORY DATA: See below. MICROBIOLOGY: Please see below. ASSESSMENT: 78 yo female for left hip fracture s/p fall, PMHx right hip fx one year ago, COPD, GERD, dementia. #left hip fracture - NPO/IVF - ortho c/s #COPD - respiratory treatment/IS - CXR reviewed #GERD #dementia #DVT prophylaxis - as per ortho Dispo: Labs reviewed from [facility] - within normal limits, troponin negative; patient denies any anginal symptoms; daughter at bedside confirms her mother has never complained of chest pain; discussed activity level with daughter, patient able to achieve >4 METS without chest pain; echocardiogram from 11/2017 showed normal systolic/diastolic function, and no valvular disease; EKG NSR, no acute findings; patient is medically optimized for planned orthopedic intervention - low-moderate risk; Class I Risk based on RCRI Home Medications Scheduled Aspirin (Aspir 81) 81 Mg Tablet.dr, 81 MG PO DAILY Budesonide (Budesonide) 0.5 Mg/2 Ml Ampul.neb, 0.5 MG INH BID Donepezil HCl (Donepezil HCl) 10 Mg Tablet, 10 MG PO QHS Memantine HCl (Memantine HCl) 10 Mg Tablet, 10 MG PO BID Multivitamins (Thera M Plus Tablet) 1 Each Tablet, 1 TAB PO DAILY Pantoprazole Sodium (Protonix) 40 Mg Tab, 40 MG PO DAILY Quetiapine Fumarate (Quetiapine Fumarate) 50 Mg Tablet, 50 MG PO BID TAKES 1500/2000 Scheduled PRN Ipratropium/Albuterol Sulfate (Iprat-Albut 0.5-3(2.5) mg/3 ml) 3 Ml Ampul.neb, 1 VIAL NEB QID PRN for SHORTNESS OF BREATH Allergies Coded Allergies: No Known Allergies (Unverified , 11/16/17) A-FIB/CHADSVASC A-FIB History Current/History of A-Fib/PAF?: No RHINA FONTANEZ MD Dec 09, 2018 14:54
[2018-12-09] MEDS ORDERED: DONE10TA90 PO (16:32)
[2018-12-09] MEDS ORDERED: BUDE0.5S6 INH (16:32)
[2018-12-09] MEDS ORDERED: QUET5TAB PO (16:32)
[2018-12-09] MEDS ORDERED: MEMA1TAB2 PO (16:32)
[2018-12-09] MEDS ORDERED: VITMTA PO (16:32)
[2018-12-09] MEDS ORDERED: ASPI81TA85 PO (16:32)
[2018-12-09] MEDS ORDERED: IPRA0.00 NEB (16:32)
[2018-12-09] MEDS ORDERED: IPRATROPIUM 0.5MG/ALBUTEROL 2.5MG INH SOL UD 3ML (DUONEB)(J7620) NEB PRN (16:45)
[2018-12-09] MEDS: NS 1,000 ML IV SCH (17:25)
[2018-12-09] MEDS: PANTOPRAZOLE 40MG TAB (PROTONIX) PO SCH (17:25)
[2018-12-09] MEDS: BUDESONIDE 0.5 MG/2 ML INHALATION SUSPENSION INH SCH (19:03)
[2018-12-09] MEDS ORDERED: ACETAMINOPHEN *IV* 1,000 MG in IV 1 EA IV ONE (19:30)
[2018-12-09 20:27] LABS: INR 1.16; PROTHROMBIN TIME 14.6 SECONDS (11.8-14.0)
[2018-12-09 20:34] LABS: BLOOD UREA NITROGEN 19 MG/DL (7-18); CALCIUM LEVEL 8.1 MG/DL (8.8-10.2); CARBON DIOXIDE LEVEL 26 MEQ/L (21-32); CHLORIDE LEVEL 112 MEQ/L (98-107); CREATININE FOR GFR 0.85 MG/DL (0.55-1.30); GLOMERULAR FILTRATION RATE > 60.0 (>39); GLUCOSE, FASTING 155 MG/DL (70-100); NT-PRO BNP 229 PG/ML (<450); POTASSIUM SERUM 4.4 MEQ/L (3.5-5.1); SODIUM LEVEL 145 MEQ/L (136-145)
[2018-12-09 20:43] LABS: BASO % 0.2 % (0.0-1.0); HEMATOCRIT 38.7 % (36.0-47.0); HEMOGLOBIN 12.5 g/dl (12.0-15.5); LYMPH # 0.5 10^3/uL (1.5-5.0); LYMPH % 2.9 % (24.0-44.0); MEAN CORPUSCULAR HEMOGLOBIN 31.7 pg (27.0-33.0); MEAN CORPUSCULAR HGB CONC 32.3 g/dl (32.0-36.5); MEAN CORPUSCULAR VOLUME 98.2 fl (80.0-96.0); MONO # 1.3 10^3/uL (0.0-0.8); MONO % 7.5 % (0.0-5.0); NEUTROPHILS # 15.1 10^3/uL (1.5-8.5); PLATELET COUNT, AUTOMATED 228 10^3/uL (150-450); RED BLOOD COUNT 3.94 10^6/uL (4.00-5.40)
[2018-12-09] MEDS ORDERED: ONDANSETRON 4 MG TAB (S0181) PO PRN (21:30)
[2018-12-09] MEDS: ACETAMINOPHEN TAB 650MG DOSE (2X325MG) PO PRN (21:48)
[2018-12-09] MEDS: QUEtiapine FUMARATE 50 MG TAB PO SCH (21:48)
[2018-12-09 22:00] VITALS: BP 150/67
[2018-12-10 02:00] VITALS: BP 148/62
[2018-12-10] MEDS: ACETAMINOPHEN TAB 650MG DOSE (2X325MG) PO PRN ×2 (05:30→16:17)
[2018-12-10] MEDS: NS 1,000 ML IV SCH (05:31)
[2018-12-10 06:00] VITALS: BP 118/56
[2018-12-10] MEDS ORDERED: ceFAZolin SOD 2 GM in IV 1 EA IV ONE (06:00)
[2018-12-10 06:40] LABS: HEMATOCRIT 33.1 % (36.0-47.0); HEMOGLOBIN 10.6 g/dl (12.0-15.5); MEAN CORPUSCULAR HEMOGLOBIN 31.2 pg (27.0-33.0); MEAN CORPUSCULAR VOLUME 97.4 fl (80.0-96.0); PLATELET COUNT, AUTOMATED 186 10^3/uL (150-450)
[2018-12-10 07:05] LABS: BLOOD UREA NITROGEN 23 MG/DL (7-18); CALCIUM LEVEL 7.8 MG/DL (8.8-10.2); CARBON DIOXIDE LEVEL 26 MEQ/L (21-32); CHLORIDE LEVEL 111 MEQ/L (98-107); CREATININE FOR GFR 0.84 MG/DL (0.55-1.30); GLOMERULAR FILTRATION RATE > 60.0 (>39); GLUCOSE, FASTING 117 MG/DL (70-100); POTASSIUM SERUM 4.1 MEQ/L (3.5-5.1); SODIUM LEVEL 143 MEQ/L (136-145)
--- NOTE | 2018-12-10 07:39 | IPNPDOC ---
Text Note Date of Service The patient was seen on 12/10/18. NOTE Subjective: Patient seen and examined at bedside. No acute overnight events reported. Patient has no new medical complaints, but is a poor historian secondary to dementia. Objective: VITAL SIGNS: See below General: NAD, lying comfortably in bed, elderly, pleasantly confused HEENT: NC/AT, EOMI, PERRL Lungs: CTA B/L Heart: +S1S2, RRR, no murmurs rub or gallops Abd: soft, NT, +BS Ext: no edema Psych: oriented to person and place only ASSESSMENT: 78 yo female transferred from [facility] for left hip fracture s/p fall, PMHx right hip fx one year ago, COPD, GERD, dementia. #left hip fracture - NPO/IVF - d/w ortho - recommendations ordered: labs, imaging including femur x-ray #COPD - respiratory treatment/IS - CXR reviewed - wean O2 as tolerated #GERD #dementia #DVT prophylaxis - as per ortho Dispo: medical optimization provided on H&P; anticipating surgery today VS,Fishbone, I+O VS, Fishbone, I+O Laboratory Tests 12/09/18 19:57 Red Blood Count 3.94 L, Mean Corpuscular Volume 98.2 H, Mean Corpuscular Hemoglo bin 31.7, Mean Corpuscular Hemoglobin Concent 32.3, Red Cell Distribution Width 14.6 H, Neutrophils (%) (Auto) 89.0 H, Lymphocytes (%) (Auto) 2.9 L, Monocytes (%) (Auto) 7.5 H, Eosinophils (%) (Auto) 0.0, Basophils (%) (Auto) 0.2, Neutrophils # (Auto) 15.1 H, Lymphocytes # (Auto) 0.5 L, Monocytes # (Auto) 1.3 H, Eosinophils # (Auto) 0.0, Basophils # (Auto) 0.0, Calcium Level 8.1 L 12/10/18 06:28 Red Blood Count 3.40 L, Mean Corpuscular Volume 97.4 H, Mean Corpuscular Hemog lobin 31.2, Mean Corpuscular Hemoglobin Concent 32.0, Red Cell Distribution Width 14.8 H, Calcium Level 7.8 L Vital Signs Date Time Temp Pulse Resp B/P (MAP) Pulse Ox O2 Delivery O2 Flow Rate FiO2 12/10/18 06:00 100.0 69 20 118/56 (76) 93 2.0 12/09/18 19:10 Room Air I&O- Last 24 Hours up to 6 AM 12/10/18 06:00 Intake Total 765 ml Output Total 0 ml Balance 765 ml RHINA FONTANEZ MD Dec 10, 2018 07:20
[2018-12-10] MEDS: BUDESONIDE 0.5 MG/2 ML INHALATION SUSPENSION INH SCH ×2 (07:43→19:47)
--- NOTE | 2018-12-10 07:50 | REP ---
Portable chest, 05:10 p.m., single AP view with the patient semi upright: Comparison is 11/16/2017. There is chronic interstitial coarsening, unchanged, compatible with fibrosis. There are no focal infiltrates. There are no pleural effusions. Cardiac size is upper normal for portable positioning. The barb, mediastinum, skeletal structures are unremarkable. Impression: There are no acute cardiopulmonary findings. 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 Electronically Signed by Jeffrey Smith MD 12/10/2018 07:41 A
--- NOTE | 2018-12-10 08:24 | ECGEPIP ---
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
--- NOTE | 2018-12-10 08:31 | CR ---
DATE OF CONSULTATION: 12/10/2018 INDICATION: Left hip fracture. HISTORY OF PRESENT ILLNESS: Fern is a 78-year-old female with dementia who suffered a fall on 12/09/2018 and was brought to [facility] where x-rays revealed a displaced intratrochanteric femur fracture. Of note she had I believe a displaced femoral neck fracture and given the degree of arthritis actually had a total hip arthroplasty. The patient was transferred to [facility] due to no orthopedic surgeon available at [facility] and she was admitted to the hospitalist service here. I was notified late evening on 12/09/2018 that the patient had been medically optimized. Patient is significantly demented. I was not able to get much of a history from her. For the patient's full past medical history, past surgical history, medications, allergies, social history and review of systems please see the admitting history and physical which I reviewed. PHYSICAL EXAMINATION: Reveals an elderly female who is on a non-rebreather. She is talking to herself. She does follow commands. She was able to fire EHL, FHL, TA and GS. Unable to assess sensation to light touch due to mental status. She did have a 2+ DP pulse. Pulmonary nonlabored breathing. Abdomen was nondistended. Skin at the left hip and knee is intact without opening. The left leg is shortened in externally rotated. No rotation performed due to known fracture. 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 We are unable to visualize the distal femur and therefore we are requesting full femur films. ASSESSMENT AND PLAN: Fern Ku is a 78-year-old female with dementia who has a left displaced intertrochanteric proximal femur fracture. I did call the daughter in law, Corrie who is the health care proxy. The patient lives with the daughter. I explained to her that surgery will either be performed by the shipping lead person physician later today if possible, otherwise I will performed her surgery tomorrow afternoon. She will remain under the hospitalist service. We will contact the daughter in law to get telephone consent.
[2018-12-10] MEDS: MULTIVITAMINS/MINERALS THERAP 1 TAB PO SCH (08:39)
[2018-12-10] MEDS: PANTOPRAZOLE 40MG TAB (PROTONIX) PO SCH (08:39)
[2018-12-10] MEDS: MEMANTINE 5MG TABLET (NAMENDA) PO SCH ×2 (08:39→20:26)
--- NOTE | 2018-12-10 13:16 | REP ---
Left femur five views: There is an intertrochanteric fracture of the left hip. There is no dislocation. There is osteoarthritis of the left hip. There is an ovoid mottled lesion within the medullary canal of the distal femoral shaft, likely an enchondroma or bone infarct. There is diffuse demineralization. Electronically Signed by Jeffrey Smith MD 12/10/2018 01:08 P
[2018-12-10 14:00] VITALS: BP 151/62
--- NOTE | 2018-12-10 15:44 | REP ---
CT of the left hip: Comparison is the plain film study from earlier today. There is an intertrochanteric fracture. There is no dislocation. There is left hip osteoarthritis. No acetabular fracture is identified. No ratio fracture is identified. There is no dislocation. Impression: Intertrochanteric fracture. Osteoarthritis. Electronically Signed by Jeffrey Smith MD 12/10/2018 03:35 P
[2018-12-10] MEDS: QUEtiapine FUMARATE 50 MG TAB PO SCH ×2 (16:17→20:00)
[2018-12-10 20:30] VITALS: BP 131/60
[2018-12-10] MEDS: MORPHINE 4 MG/ML 1ML VIAL/SYRINGE (J2270) IV PRN (20:40)
[2018-12-10] MEDS ORDERED: ceFAZolin 2 GM/D5W 50 ML IV BAG (J0690 PER 500MG) As Ordered ONE (21:33)
[2018-12-10] MEDS ORDERED: MIDAZOLAM INJ 2 MG/2 ML VIAL (J2250) As Ordered ONE (22:30)
[2018-12-10] MEDS ORDERED: KETAMINE HCL 200 MG/20 ML VIAL As Ordered ONE (22:30)
[2018-12-10] MEDS ORDERED: LIDOCAINE 2% INJ 100 MG/5 ML SDV (FOR ANES.) As Ordered ONE (22:30)
[2018-12-10] MEDS ORDERED: fentaNYL 100 MCG/2 ML INJECTION (J3010) As Ordered ONE (22:30)
[2018-12-10] MEDS ORDERED: PHENYLephrine HCL 500 MCG/5 ML (100MCG/ML) SYRINGE (J2370) As Ordered ONE (22:31)
[2018-12-10] MEDS ORDERED: ePHEDrine SULFATE 25 MG/5 ML(5MG/ML) SYRINGE As Ordered ONE (22:31)
[2018-12-10] MEDS ORDERED: PROPOFOL 500 MG/50 ML VIAL As Ordered ONE (22:31)
[2018-12-10] MEDS ORDERED: BUPIVACAINE HCL 0.5% 30 ML VIAL As Ordered ONE (22:31)
[2018-12-10] MEDS ORDERED: ONDANSETRON 4MG/2ML VIAL (J2405) As Ordered ONE (22:31)
[2018-12-10] MEDS ORDERED: ONDANSETRON 4MG/2ML VIAL (J2405) IV PRN (23:30)
[2018-12-10] MEDS ORDERED: PERCOCET 5MG/325MG TAB PO PRN (23:30)
[2018-12-10] MEDS ORDERED: LR 1,000 ML IV SCH (23:30)
[2018-12-10] MEDS ORDERED: METOCLOPRAMIDE INJ 10MG/2ML VIAL (J2765) IV PRN (23:30)
[2018-12-10] MEDS ORDERED: fentaNYL 100 MCG/2 ML INJECTION (J3010) IV PRN (23:30)
[2018-12-11] VITALS (11 sets, daily range): BP systolic 94–132; BP diastolic 44–65
[2018-12-11] MEDS: NS 1,000 ML IV SCH (01:06)
[2018-12-11] MEDS: ACETAMINOPHEN TAB 650MG DOSE (2X325MG) PO PRN (01:06)
[2018-12-11] MEDS: MORPHINE 4 MG/ML 1ML VIAL/SYRINGE (J2270) IV PRN (04:49)
[2018-12-11] MEDS: ceFAZolin SOD 1 GM in D5W MINI-BAG PLUS 50 ML IV SCH ×3 (06:04→22:04)
[2018-12-11 06:36] LABS: HEMATOCRIT 29.5 % (36.0-47.0); HEMOGLOBIN 9.4 g/dl (12.0-15.5); MEAN CORPUSCULAR HEMOGLOBIN 31.4 pg (27.0-33.0); MEAN CORPUSCULAR HGB CONC 31.9 g/dl (32.0-36.5); MEAN CORPUSCULAR VOLUME 98.7 fl (80.0-96.0); PLATELET COUNT, AUTOMATED 142 10^3/uL (150-450); RED BLOOD COUNT 2.99 10^6/uL (4.00-5.40)
[2018-12-11 07:02] LABS: BLOOD UREA NITROGEN 17 MG/DL (7-18); CALCIUM LEVEL 7.5 MG/DL (8.8-10.2); CARBON DIOXIDE LEVEL 28 MEQ/L (21-32); CHLORIDE LEVEL 109 MEQ/L (98-107); CREATININE FOR GFR 0.57 MG/DL (0.55-1.30); GLOMERULAR FILTRATION RATE > 60.0 (>39); GLUCOSE, FASTING 114 MG/DL (70-100); POTASSIUM SERUM 3.9 MEQ/L (3.5-5.1); SODIUM LEVEL 143 MEQ/L (136-145)
[2018-12-11] MEDS: BUDESONIDE 0.5 MG/2 ML INHALATION SUSPENSION INH SCH ×2 (07:53→19:31)
--- NOTE | 2018-12-11 07:54 | REP ---
Fluoroscopic guidance for gamma nail placement: A series of 82 intraoperative fluoroscopic views are performed during gamma nail internal fixation of the left hip. The final views demonstrate the gamma nail and fracture to be in satisfactory positions alignment. Fluoroscopic exposure time is 39 seconds. The fluoroscopic images are performed with last image hold technology and require no additional radiation. Electronically Signed by Jeffrey Smith MD 12/11/2018 07:46 A
[2018-12-11] MEDS: MEMANTINE 5MG TABLET (NAMENDA) PO SCH ×2 (08:05→20:34)
[2018-12-11] MEDS: SENOKOT S TAB PO SCH ×2 (08:05→20:34)
[2018-12-11] MEDS: MOM 30ML SUSPENSION UDC PO SCH (08:05)
[2018-12-11] MEDS: MIRALAX *UNIT DOSE* 17GM PACKET PO SCH (08:05)
[2018-12-11] MEDS: MULTIVITAMINS/MINERALS THERAP 1 TAB PO SCH (08:05)
[2018-12-11] MEDS: traMADol 50 MG TAB PO PRN ×3 (08:07→20:36)
[2018-12-11] MEDS: PANTOPRAZOLE 40MG TAB (PROTONIX) PO SCH (08:08)
[2018-12-11] MEDS: ACETAMINOPHEN 500 MG TAB PO SCH ×2 (08:08→16:04)
--- NOTE | 2018-12-11 08:48 | IPNPDOC ---
Text Note Date of Service The patient was seen on 12/11/18. NOTE Subjective: Had surgery on 12/10/18. No acute overnight events reported. Compl ains of left hip pain on minimal movement which is appropriate. Patient has no new medical complaints, but is a poor historian secondary to dementia. Objective: VITAL SIGNS: See below General: NAD, lying comfortably in bed, elderly, pleasantly confused HEENT: NC/AT, EOMI, PERRL Lungs: Bilateral vesicular breath sounds, clear to auscultation Heart: +S1S2, RRR, no murmurs rub or gallops Abd: soft, NT, +BS Ext: no edema Psych: oriented to person and place only ASSESSMENT: 78 yo female transferred from [facility] for left hip fracture s/p fall with PMHx right hip fx one year ago, COPD, GERD, dementia. Left hip fracture s/p mechanical fall. s/p surgery on 12/10/18 pain control and dvt prophylaxis as per ortho PT and OT COPD respiratory treatment/IS CXR reviewed wean O2 as tolerated budesonide, duonebs. GERD PPI Dementia donepezil, memantine, seroquel DVT prophylaxis Xarelto VS,Fishbone, I+O VS, Fishbone, I+O Laboratory Tests 12/11/18 06:24 Red Blood Count 2.99 L, Mean Corpuscular Volume 98.7 H, Mean Corpuscular Hemoglobin 31.4, Mean Corpuscular Hemoglobin Concent 31.9 L, Red Cell Distribution Width 14.6 H Vital Signs Date Time Temp Pulse Resp B/P (MAP) Pulse Ox O2 Delivery O2 Flow Rate FiO2 12/11/18 04:59 18 1.0 12/11/18 00:33 65 115/53 (73) 98 12/10/18 23:36 98.3 12/09/18 19:10 Room Air I&O- Last 24 Hours up to 6 AM 12/11/18 06:00 Intake Total 1130 ml Output Total 300 ml Balance 830 ml HOLLY AYERS MD Dec 11, 2018 06:53
[2018-12-11] MEDS: QUEtiapine FUMARATE 50 MG TAB PO SCH ×2 (16:03→20:36)
[2018-12-11] MEDS: RIVAROXABAN 10 MG TAB (XARELTO) PO SCH (18:11)
[2018-12-11] MEDS: DONEPEZIL 5 MG TAB PO SCH (20:34)
[2018-12-12] MEDS: ACETAMINOPHEN 500 MG TAB PO SCH ×3 (00:44→16:00)
[2018-12-12 02:00] VITALS: BP 114/55
[2018-12-12 06:00] VITALS: BP 113/50
[2018-12-12] MEDS: BUDESONIDE 0.5 MG/2 ML INHALATION SUSPENSION INH SCH ×2 (07:45→20:08)
[2018-12-12] MEDS ORDERED: XARE10TA PO (08:06)
[2018-12-12] MEDS ORDERED: TRAM50TA2 PO (08:06)
[2018-12-12] MEDS: SENOKOT S TAB PO SCH ×2 (09:06→21:47)
[2018-12-12] MEDS: PANTOPRAZOLE 40MG TAB (PROTONIX) PO SCH (09:07)
[2018-12-12] MEDS: MOM 30ML SUSPENSION UDC PO SCH (09:08)
[2018-12-12] MEDS: MIRALAX *UNIT DOSE* 17GM PACKET PO SCH (09:08)
[2018-12-12] MEDS: MULTIVITAMINS/MINERALS THERAP 1 TAB PO SCH (09:08)
[2018-12-12] MEDS: MEMANTINE 5MG TABLET (NAMENDA) PO SCH ×2 (09:08→21:47)
--- NOTE | 2018-12-12 09:33 | RO ---
DATE OF PROCEDURE: 12/10/2018 PREOPERATIVE DIAGNOSIS: Left intertrochanteric hip fracture. POSTOPERATIVE DIAGNOSIS: Left intertrochanteric hip fracture. PROCEDURE: Left femoral noah placing. SURGEON: Dr. Kilo Mario COMMUNICATION CLERK: None. ANESTHESIA: Spinal. PREOPERATIVE ANTIBIOTICS: 2 grams of Ancef. COMPLICATIONS: None. INDICATIONS: A 78-year-old female with multiple comorbidities who had slip and fall and suffered a left intertrochanteric fracture. In order to improve her mobilization and keep her from a steady decline, between us and her daughter, Corrie, the power of tax associate attorney, we proceeded with a left intertrochanteric femoral rodding. They understood the risks and benefits of this including, but not limited to, infection, malunion, nonunion, deep venous thrombosis (DVT), and blood loss. OPERATIVE DESCRIPTION: Patient was brought back to the operating room (OR) on a stretcher, converted over to the table, where she underwent a spinal anesthesia. Once this was adequately done, the patient was moved onto the fracture table with the left leg in a stirrup and the right leg Coban with a pillow to the table, at which point, we did a closed reduction maneuver confirmed on x-ray with adequate reduction. We then prepped and draped the patient in the usual fashion. At this point, we did time-out, confirming site, side, and surgery. We made an incision in line with the greater trochanter and the femoral shaft. We then used the drill pin guide to localize our starting point on the both AP and lateral, at which point we advanced it. We then used the opening canal reamer, being careful to keep central. We then inserted the guidewire all the way down to bone. We felt it securely at the bone, at which point we inserted an 11 mm 125 degree TFN short nail, at which point we entered the guidepin for the helical blade. We confirmed on AP and lateral that we were center, center within acceptable range. We then drilled and measured 88 mm. We used 80 mm helical blade. We reinserted the helical blade after we took out the guidepin. We were happy with how it situated. We did the locking screw proximally, at which point we turned our attention to the static locking bolt. We used a guidepin, made another separate incision, inserted the trocar, drilled across, and measured a 38 mm. We then used a 38 mm screw to statically lock the nail. We confirmed on AP and lateral we had adequate reduction and placement of the hardware, at which point we irrigated the wounds thoroughly, closed with #2-0 Vicryl and veronika for skin with gauze and Tegaderm for our dressing. Patient was awoken and taken to postanesthesia care unit (PACU) in stable condition. POSTOPERATIVE PLAN: Patient will be placed on Surgical Care Improvement Project (SCIP) antibiotics prophylaxis, will weight bear as tolerated on the left side, and will follow DVT recommendations on medicine. ESAU
--- NOTE | 2018-12-12 10:56 | IPNPDOC ---
Text Note Date of Service The patient was seen on 12/12/18. NOTE Subjective: Sleeping this am during my rounds, easily arousable but confused. mumbling initially. When i reminded her about her surgery and that she is in the hospital she said" thats what everyone has been telling me" Had surgery on 12/10/18. No acute overnight events reported by nurses. Objective: VITAL SIGNS: See below General: NAD, lying comfortably in bed, elderly, pleasantly confused HEENT: NC/AT, EOMI, PERRL Lungs: Bilateral vesicular breath sounds, clear to auscultation Heart: +S1S2, RRR, no murmurs rub or gallops Abd: soft, NT, +BS Ext: no edema Psych: oriented to person and place only ASSESSMENT: 78 yo female transferred from health system for left hip fracture s/p fall with PMHx right hip fx one year ago, COPD, GERD, dementia. Left hip fracture s/p mechanical fall. s/p surgery on 12/10/18 pain control and dvt prophylaxis as per ortho PT and OT COPD respiratory treatment/IS CXR reviewed wean O2 as tolerated budesonide, duonebs. GERD PPI Dementia donepezil, memantine, seroquel DVT prophylaxis Xarelto VS,Fishbone, I+O VS, Fishbone, I+O Vital Signs Date Time Temp Pulse Resp B/P (MAP) Pulse Ox O2 Delivery O2 Flow Rate FiO2 12/12/18 06:00 99.5 67 18 113/50 (71) 97 12/12/18 02:00 1.0 12/09/18 19:10 Room Air I&O- Last 24 Hours up to 6 AM 12/12/18 06:00 Intake Total 900 ml Output Total 200 ml Balance 700 ml HOLLY AYERS MD Dec 12, 2018 10:56
[2018-12-12] MEDS: QUEtiapine FUMARATE 50 MG TAB PO SCH ×2 (14:06→21:47)
[2018-12-12] MEDS: traMADol 50 MG TAB PO PRN (14:07)
[2018-12-12 16:26] VITALS: BP 114/50
[2018-12-12] MEDS: RIVAROXABAN 10 MG TAB (XARELTO) PO SCH (18:34)
[2018-12-12] MEDS: DONEPEZIL 5 MG TAB PO SCH (21:47)
[2018-12-12 22:00] VITALS: BP 130/64
[2018-12-13] MEDS: ACETAMINOPHEN 500 MG TAB PO SCH ×2 (00:37→09:16)
[2018-12-13 06:00] VITALS: BP 111/44
[2018-12-13] MEDS: BUDESONIDE 0.5 MG/2 ML INHALATION SUSPENSION INH SCH (06:14)
[2018-12-13] MEDS ORDERED: SENN-52 PO (06:31)
[2018-12-13] MEDS ORDERED: MOM30SS2 PO (06:31)
--- NOTE | 2018-12-13 06:38 | DS.PDOC ---
Discharge Summary General Date of Admission Dec 09, 2018 at 15:40 Date of Discharge 12/13/18 Discharge Summary PROCEDURES PERFORMED DURING STAY: Left Femoral Lewis placing on 12/10/18 DISCHARGE DIAGNOSES: Left Intertrochanteric Hip Fracture s/p mechanical fall. SECONDARY DIAGNOSIS: Right hip fx one year ago, COPD, GERD, Dementia. COMPLICATIONS/CHIEF COMPLAINT: Left Hip Fracture. HISTORY OF PRESENT ILLNESS: See History and physical HOSPITAL COURSE: 78 yo female [facility] hip fracture s/p fall with PMHx right hip fx one year ago, COPD, GERD, dementia. Left hip fracture s/p mechanical fall. s/p surgery on 12/10/18 tramadol prn , xarelto. PT and OT COPD respiratory treatment/IS budesonide, duonebs. GERD PPI Dementia donepezil, memantine, seroquel DVT prophylaxis Xarelto DISCHARGE MEDICATIONS: Please see below. ALLERGIES: Please see below. PHYSICAL EXAMINATION ON DISCHARGE: VITAL SIGNS: Please see below. General: NAD, lying comfortably in bed, elderly, pleasantly confused HEENT: NC/AT, EOMI, PERRL Lungs: Bilateral vesicular breath sounds, clear to auscultation Heart: +S1S2, RRR, no murmurs rub or gallops Abd: soft, NT, +BS Ext: no edema Psych: oriented to person and place only LABORATORY DATA: Please see below. ACTIVITY: [As tolerated]. DIET: As tolerated DISCHARGE PLAN: [place] DISPOSITION: [facility] DISCHARGE INSTRUCTIONS: Follow up with Orthopedics as instructed. DISCHARGE CONDITION: [Stable]. TIME SPENT ON DISCHARGE: 35 minutes. Vital Signs/I&Os Vital Signs Date Time Temp Pulse Resp B/P (MAP) Pulse Ox O2 Delivery O2 Flow Rate FiO2 12/13/18 06:00 98.0 84 16 111/44 (66) 90 12/12/18 16:45 1.0 12/09/18 19:10 Room Air I&O- Last 24 Hours up to 6 AM 12/13/18 06:00 Intake Total 320 ml Output Total 25 ml Balance 295 ml Discharge Medications Scheduled Budesonide (Budesonide) 0.5 Mg/2 Ml Ampul.neb, 0.5 MG INH BID, (Reported) Donepezil HCl (Donepezil HCl) 10 Mg Tablet, 10 MG PO QHS, (Reported) Magnesium Hydroxide (Milk of Magnesia) 400 Mg/5 Ml Oral.susp, 30 ML PO DAILY Memantine HCl (Memantine HCl) 10 Mg Tablet, 10 MG PO BID, (Reported) Multivitamins (Thera M Plus Tablet) 1 Each Tablet, 1 TAB PO DAILY, (Reported) Pantoprazole Sodium (Protonix) 40 Mg Tab, 40 MG PO DAILY, (Reported) Quetiapine Fumarate (Quetiapine Fumarate) 50 Mg Tablet, 50 MG PO BID, (Reported) TAKES 1499/1999 Rivaroxaban (Xarelto) 10 Mg Tablet, 10 MG PO DAILY Sennosides/Docusate Sodium (Senna Plus Tablet) 1 Each Tablet, 1 TAB PO BID Scheduled PRN Ipratropium/Albuterol Sulfate (Iprat-Albut 0.5-3(2.5) mg/3 ml) 3 Ml Ampul.neb, 1 VIAL NEB QID PRN for SHORTNESS OF BREATH, (Reported) Tramadol HCl (Tramadol HCl) 50 Mg Tablet, 1-2 TAB PO Q4H PRN for PAIN Allergies Coded Allergies: No Known Allergies (Unverified , 11/16/17) HOLLY AYERS MD Dec 13, 2018 06:38
[2018-12-13] MEDS: MOM 30ML SUSPENSION UDC PO SCH (09:15)
[2018-12-13] MEDS: MIRALAX *UNIT DOSE* 17GM PACKET PO SCH (09:15)
[2018-12-13] MEDS: MEMANTINE 5MG TABLET (NAMENDA) PO SCH (09:16)
[2018-12-13] MEDS: PANTOPRAZOLE 40MG TAB (PROTONIX) PO SCH (09:16)
[2018-12-13] MEDS: MULTIVITAMINS/MINERALS THERAP 1 TAB PO SCH (09:16)
[2018-12-13] MEDS: SENOKOT S TAB PO SCH (09:16)
== END 2018-12-13 12:00 | DRG 482 ==
LOC: M MS5PR 15:40
PROVIDERS: ADMIT Internal Medicine; ATTEND Internal Medicine Nephrology
PROC: 0QS704Z Reposition Left Upper Femur with Internal Fixation Device, Open Approach (ICD-10-PCS; principal; 2018-12-10 20:00)
DX: S72.142A Displaced intertrochanteric fracture of left femur, initial encounter for closed fracture (principal); W06.XXXA Fall from bed, initial encounter; Y92.009 Unspecified place in unspecified non-institutional (private) residence as the place of occurrence of the external cause; Y99.8 Other external cause status; J44.9 Chronic obstructive pulmonary disease, unspecified; K21.9 Gastro-esophageal reflux disease without esophagitis; F03.90 Unspecified dementia, unspecified severity, without behavioral disturbance, psychotic disturbance, mood disturbance, and anxiety; Z87.891 Personal history of nicotine dependence; Z79.82 Long term (current) use of aspirin; Z79.899 Other long term (current) drug therapy

== ENCOUNTER → 2018-12-20 | Outpatient (REF) ==
[~2018-12-20] MED LIST changes: +ASPI81TA85 PO; +BUDE0.5S6 INH; +DONE10TA90 PO; +IPRA0.00 NEB; +MEMA1TAB2 PO; +MOM30SS2 PO; +QUET5TAB PO; +SENN-52 PO; +VITMTA PO
[2018-12-20 08:44] LABS: HEMATOCRIT 28.1 % (36.0-47.0); MEAN CORPUSCULAR HEMOGLOBIN 31.9 pg (27.0-33.0); MEAN CORPUSCULAR VOLUME 99.6 fl (80.0-96.0); PLATELET COUNT, AUTOMATED 412 10^3/uL (150-450); RED BLOOD COUNT 2.82 10^6/uL (4.00-5.40)
== END ==
LOC: SKLAB5 07:36
PROVIDERS: ATTEND Internal Medicine
DX: D64.9 Anemia, unspecified (principal)